=== PATIENT | male | born 1960 | race Caucasian/White ===

== ENCOUNTER → 2024-02-12 | Outpatient (CLI) | payer OTHER, SELFPAY ==
[2024-02-12 14:09] LABS: AST(SGOT) 24 U/L (15-37); Alanine Aminotransfer ALT/SGPT 40 U/L (16-61); Albumin, Serum 3.6 g/dL (3.2-5.0); Alkaline Phosphatase 80 U/L (45-117); Anion Gap 5 (5-15); BUN 22 mg/dL (7-18); BUN/Creat Ratio 17.1 RATIO (10-20); Chloride 107 mmol/L (98-107); Creatinine, Serum 1.29 mg/dL (0.70-1.30); EST Glomerular Filtration Rate 60 mL/min (>60); Est Glom Filt Rate - Afr Amer 73 mL/min (>60); Globulin 3.5 g/dL (2.2-4.2); Glucose 100 mg/dL (74-106); Potassium 4.2 mmol/L (3.5-5.1); Protein, Total 7.1 g/dL (6.4-8.2); Sodium Level 139 mmol/L (136-145); Thyroid Stim Hormone (TSH) 3.84 uIU/mL (0.358-3.74)
== END | disposition home or self-care (01) ==
LOC: LAB 12:12
PROVIDERS: PCP Physician Assistant; Referring Provider Internal Medicine Cardiovascular Disease; Visit Provider Internal Medicine Cardiovascular Disease
DX: E78.5 Hyperlipidemia, unspecified (principal); R79.89 Other specified abnormal findings of blood chemistry; I10 Essential (primary) hypertension; F17.200 Nicotine dependence, unspecified, uncomplicated; Z86.19 Personal history of other infectious and parasitic diseases; I25.2 Old myocardial infarction
CPT/HCPCS: 36415; 80053; 84443

== ENCOUNTER → 2024-03-06 | Outpatient (CLI) | payer OTHER, SELFPAY ==
--- NOTE | 2024-03-06 14:48 | ECHOL_ITS ---
Reason For Study: HTN Procedure This was a limited 2D transthoracic echocardiogram. Exam performed in department. Left Ventricle Normal LV size. Left ventricular systolic function is normal. The left ventricular ejection fraction is 65 %. No regional wall motion abnormalities noted. Right Ventricle Normal RV size. Normal systolic function. Atria Normal left atrium. Normal right atrium. Mitral Valve Normal mitral valve. Tricuspid Valve Normal tricuspid valve. Aortic Valve Normal aortic valve. Trisinus/trileaflet aortic valve. Pulmonic Valve Normal pulmonic valve. Great Vessels Mildly dilated aortic root. The pulmonary artery is normal size. Inferior vena cava collapse with respiration. Pericardium/Pleural No pericardial effusion. MMode/2D Measurements & Calculations LVIDd: 5.2 cm IVSd: 0.97 cm Ao root diam: 3.9 cm LVIDs: 3.4 cm LVPWd: 1.1 cm RVDd: 3.2 cm FS: 35.2 % LAV(MOD-bp): 44.5 ml LVAd ap4: 26.0 cm2 LVAd ap2: 25.3 cm2 LAV(MOD-bp) Indexed: 18.1 ml/m2 LVLd ap4: 7.9 cm LVLd ap2: 7.8 cm LAV(MOD-sp2): 42.2 ml EDV(MOD-sp4): 71.4 ml EDV(MOD-sp2): 68.1 ml LAV(MOD-sp4): 42.6 ml EDV(sp4-el): 72.7 ml EDV(sp2-el): 69.4 ml LVAs ap4: 13.0 cm2 LVAs ap2: 13.7 cm2 LVLs ap4: 6.5 cm LVLs ap2: 7.1 cm ESV(MOD-sp4): 23.1 ml ESV(MOD-sp2): 23.4 ml ESV(sp4-el): 22.0 ml ESV(sp2-el): 22.3 ml EF(MOD-sp4): 67.6 % EF(MOD-sp2): 65.6 % EF(sp4-el): 69.7 % SV(MOD-sp4): 48.3 ml SV(MOD-sp2): 44.6 ml SV(sp4-el): 50.7 ml LA dimension(2D): 3.7 cm LA A4 area: 16.6 cm2 RA A4 area: 13.1 cm2 ECHO/Echo, Limited Study Interpretation Summary Normal LV size. Left ventricular systolic function is normal. The left ventricular ejection fraction is 65 %. Structurally normal valves. Ordering Physician: Zaynab Beckett Referring Physician: Que Payne Performed By: Betsy Moeller, MOHIT, RVT
== END | disposition home or self-care (01) ==
LOC: CVS 14:19
PROVIDERS: PCP Physician Assistant; Referring Provider Internal Medicine Cardiovascular Disease; Visit Provider Internal Medicine Cardiovascular Disease
DX: I10 Essential (primary) hypertension (principal); R77.8 Other specified abnormalities of plasma proteins; F17.200 Nicotine dependence, unspecified, uncomplicated; Z86.19 Personal history of other infectious and parasitic diseases
CPT/HCPCS: 93308